=== PATIENT | female | born 1995 | race Caucasian/White ===

== ENCOUNTER 2018-08-25 18:27 | Outpatient (CLI) | payer OTHER ==
[2018-08-25 22:05] LABS: RUPTURE FETAL MEMBRANES NEGATIVE (NEGATIVE)
== END 2018-08-25 21:30 | disposition home or self-care (01) ==
LOC: OBT 18:27 → L-D 18:28 → OBT 21:30
DX: O62.9 Abnormality of forces of labor, unspecified (principal); O26.893 Other specified pregnancy related conditions, third trimester; E86.0 Dehydration; Z3A.38 38 weeks gestation of pregnancy
CPT/HCPCS: 76815; 76818; 84112

== ENCOUNTER 2018-09-03 13:18 | Inpatient (IN) | payer OTHER ==
[2018-09-03] MEDS ORDERED: LIDOCAINE 1% (MPF) 30 ML INJ INJ (14:30)
[2018-09-03] MEDS ORDERED: OXYTOCIN 30 UNITS/LR 500 ML IV ×2 (14:30)
[2018-09-03] MEDS ORDERED: IBUPROFEN 600 MG TAB PO (14:30)
[2018-09-03] MEDS ORDERED: MISOPROSTOL 200 MCG TAB PR (14:30)
[2018-09-03] MEDS ORDERED: CARBOPROST 250 MCG INJ IM (14:30)
[2018-09-03] MEDS ORDERED: METHYLERGONOVINE 0.2 MG INJ IM (14:30)
[2018-09-03 14:34] LABS: ADD MAN DIFF? NO
[2018-09-03 14:38] LABS: WHITE BLOOD COUNT 8.4 10^3/ul (4.8-10.8)
[2018-09-03 14:38] LABS: BASOPHILS % 0.4 % (0.0-2.0); EOSINOPHILS # 0.1 10^3/ul (0.0-0.5); EOSINOPHILS % 0.6 % (0.0-7.0); HEMATOCRIT 35.3 % (37.0-47.0); HEMOGLOBIN 11.7 g/dl (12.0-16.0); LYMPHOCYTES # 1.7 10^3/ul (0.8-2.9); LYMPHOCYTES % 20.4 % (15.0-51.0); MEAN CORPUSCULAR HEMOGLOBIN 30.3 pg (29.0-33.0); MEAN CORPUSCULAR HGB CONC 33.1 g/dl (32.0-37.0); MEAN CORPUSCULAR VOLUME 91.5 fl (82.0-101.0); MEAN PLATELET VOLUME 12.2 fl (7.4-10.4); NEUTROPHIL # 5.6 10^3/ul (1.6-7.5); NEUTROPHILS % 66.2 % (39.0-77.0); PLATELET COUNT 167 10^3/UL (140-415); RED BLOOD COUNT 3.86 10^6/ul (4.20-5.40); RED CELL DISTRIBUTION WIDTH 13.6 % (11.5-14.5)
[2018-09-03 14:57] LABS: INR 0.94; PROTIME 12.7 Sec (11.9-14.9)
[2018-09-03 14:58] LABS: PARTIAL THROMBOPLASTIN TIME 26.3 Sec (23.0-35.0)
[2018-09-03 15:51] LABS: RAPID PLASMA REAGIN NONREACTIVE (NR)
[2018-09-03] MEDS: OXYTOCIN 30 UNITS/LR 500 ML IV (16:36)
[2018-09-03] MEDS: LACTATED RINGER'S 1,000 ML IV ×2 (16:44→20:41)
[2018-09-04] MEDS: LACTATED RINGER'S 1,000 ML IV ×4 (03:19→13:20)
[2018-09-04] MEDS: BUTORPHANOL 2 MG INJ IV (08:17)
[2018-09-04] MEDS: OXYTOCIN 30 UNITS/LR 500 ML IV ×4 (10:01→23:23)
[2018-09-04] MEDS ORDERED: FENTAnyl 2MCG/ML-ROPIV 0.2% 100 ML (11:56)
[2018-09-04] MEDS ORDERED: NALOXONE (0.4 MG/ML) INJ IV (12:00)
[2018-09-04] MEDS ORDERED: HYDROmorphONE 0.5 MG/0.5 ML SYG IV ×2 (12:00)
[2018-09-04] MEDS ORDERED: DIPHENHYDRAMINE 50 MG INJ IV (12:00)
[2018-09-04] MEDS ORDERED: FENTAnyl 2MCG/ML-ROPIV 0.2% 100 ML BAG EPI (12:00)
[2018-09-04] MEDS ORDERED: KETOROLAC 30 MG INJ IV (12:00)
[2018-09-04] MEDS ORDERED: ONDANSETRON 4 MG INJ IV ×2 (12:00→18:30)
[2018-09-04] MEDS: IBUPROFEN 600 MG TAB PO ×2 (18:30→23:20)
[2018-09-04] MEDS ORDERED: OXYTOCIN 30 UNITS/LR 500 ML IV (18:30)
[2018-09-04] MEDS ORDERED: DIPHENHYDRAMINE 25 MG CAP PO (18:30)
[2018-09-04] MEDS ORDERED: NACL 0.9% 3 ML SYG IV (18:30)
[2018-09-04] MEDS ORDERED: MISOPROSTOL 200 MCG TAB PR (18:30)
[2018-09-04] MEDS ORDERED: ZOLPIDEM 5 MG TAB PO (18:30)
[2018-09-04] MEDS ORDERED: CARBOPROST 250 MCG INJ IM (18:30)
[2018-09-04 19:45] LABS: HEMATOCRIT 31.8 % (37.0-47.0); HEMOGLOBIN 10.7 g/dl (12.0-16.0)
[2018-09-04] MEDS: WITCH HAZEL/GLYCERIN PAD PR (23:21)
[2018-09-04] MEDS: LANOLIN HPA 1 PKT TOP (23:21)
[2018-09-04] MEDS: SENNA/DOCUSATE NA (8.6MG/50MG) TAB PO (23:21)
[2018-09-05 05:22] LABS: AMPHETAMINE/METHAMPHETAMINE Negative (NEGATIVE); BARBITURATES Negative (NEGATIVE); BENZODIAZEPINES Negative (NEGATIVE); CANNABINOIDS Negative (NEGATIVE); COCAINE Negative (NEGATIVE); OPIATES Negative (NEGATIVE)
[2018-09-05] MEDS: IBUPROFEN 600 MG TAB PO ×4 (05:47→23:40)
[2018-09-05 06:48] LABS: ADD MAN DIFF? NO
[2018-09-05 06:52] LABS: BASOPHILS % 0.3 % (0.0-2.0); EOSINOPHILS # 0.1 10^3/ul (0.0-0.5); EOSINOPHILS % 0.7 % (0.0-7.0); HEMATOCRIT 28.7 % (37.0-47.0); HEMOGLOBIN 9.4 g/dl (12.0-16.0); LYMPHOCYTES % 17.8 % (15.0-51.0); MEAN CORPUSCULAR HEMOGLOBIN 30.5 pg (29.0-33.0); MEAN CORPUSCULAR HGB CONC 32.8 g/dl (32.0-37.0); MEAN CORPUSCULAR VOLUME 93.2 fl (82.0-101.0); MEAN PLATELET VOLUME 12.2 fl (7.4-10.4); MONOCYTE # 1.2 10^3/ul (0.3-0.9); MONOCYTES % 10.8 % (0.0-11.0); NEUTROPHIL # 7.7 10^3/ul (1.6-7.5); NEUTROPHILS % 69.9 % (39.0-77.0); PLATELET COUNT 117 10^3/UL (140-415); RED BLOOD COUNT 3.08 10^6/ul (4.20-5.40); RED CELL DISTRIBUTION WIDTH 13.6 % (11.5-14.5)
[2018-09-05] MEDS: SENNA/DOCUSATE NA (8.6MG/50MG) TAB PO ×2 (10:11→21:00)
[2018-09-05] MEDS: BENZOCAINE 20% 56 ML SPRAY TOP (16:20)
[2018-09-05] MEDS: BISACODYL 10 MG SUPP PR ×2 (16:21→21:00)
[2018-09-05] MEDS: MAGNESIUM HYDROXIDE 30ML CUP PO ×2 (16:21→21:00)
[2018-09-06] MEDS: IBUPROFEN 600 MG TAB PO ×2 (05:47→11:40)
[2018-09-06] MEDS: ACETAMINOPHEN 325 MG TAB PO (08:10)
[2018-09-06] MEDS: MEASLES,MUMPS,RUBELLA VACCINE INJ SC* (09:00)
[2018-09-06] MEDS: SENNA/DOCUSATE NA (8.6MG/50MG) TAB PO (09:00)
[2018-09-06] MEDS: VARICELLA VACCINE LIVE/PF 1,350 UNIT/0.5 ML ML SC* (09:00)
[2018-09-06] MEDS: DIPHTH/TET/ACEL PERTUSS (ADULT) 0.5 ML VIAL IM* (11:41)
== END 2018-09-06 14:00 | disposition home or self-care (01) | DRG 807 ==
LOC: L-D 13:18 → PP1 09-04 20:32
PROVIDERS: Obstetrics & Gynecology
PROC: 10907ZC Drainage of Amniotic Fluid, Therapeutic from Products of Conception, Via Natural or Artificial Opening (ICD-10-PCS; 2018-09-03)
PROC: 10H073Z Insertion of Monitoring Electrode into Products of Conception, Via Natural or Artificial Opening (ICD-10-PCS; 2018-09-03)
PROC: 4A1H74Z Monitoring of Products of Conception, Cardiac Electrical Activity, Via Natural or Artificial Opening (ICD-10-PCS; 2018-09-03)
PROC: 10H07YZ Insertion of Other Device into Products of Conception, Via Natural or Artificial Opening (ICD-10-PCS; 2018-09-03)
PROC: 4A1HX4Z Monitoring of Products of Conception, Cardiac Electrical Activity, External Approach (ICD-10-PCS; 2018-09-03)
PROC: 10E0XZZ Delivery of Products of Conception, External Approach (ICD-10-PCS; principal; 2018-09-04)
PROC: 0KQM0ZZ Repair Perineum Muscle, Open Approach (ICD-10-PCS; 2018-09-04)
PROC: 3E0234Z Introduction of Serum, Toxoid and Vaccine into Muscle, Percutaneous Approach (ICD-10-PCS; 2018-09-06)
DX: O70.1 Second degree perineal laceration during delivery (principal); Z37.0 Single live birth; O99.214 Obesity complicating childbirth; Z3A.40 40 weeks gestation of pregnancy; Z23 Encounter for immunization
CPT/HCPCS: 76815; 76818; 80307; 85014; 85018; 85025; 85610; 85730; 86592; 86850; 86900; 86901; 90715; 90716; 99464